=== PATIENT | male | born 1945 | race Caucasian/White ===

== ENCOUNTER 2021-03-14 15:01 | Inpatient (IN) | payer OTHER ==
[~2021-03-14] VITALS: Ht 167.6 cm; Wt 69.9 kg
[2021-03-14] MEDS ORDERED: MECLIZINE HCL 25 MG TAB PO ONE (15:45)
[2021-03-14] MEDS ORDERED: SODIUM CHLORIDE 0.9% 1,000 ML IV ONE (15:45)
[2021-03-14 16:08] LABS: Basophils # (auto) 0 10 ^3/uL (0-0.2); Basophils % (auto) 0.2 % (0.0-2.0); Eosinophils # (auto) 0.1 10 ^3/uL (0-0.8); Eosinophils % (auto) 1.5 % (0.0-7.0); Hematocrit 40.7 % (41.0-53.0); Lymphocytes # (auto) 0.9 10 ^3/uL (0.4-5.4); Lymphocytes % (auto) 10.5 % (10.0-50.0); Mean Corpuscular Hemoglobin 31.5 pg (28.0-32.0); Mean Corpuscular Hgb Conc. 34.4 g/dL (32.0-36.0); Mean Corpuscular Volume 91.6 fL (80.0-100.0); Monocytes # (auto) 0.4 10 ^3/uL (0-1.3); Monocytes % (auto) 4.4 % (0.0-12.0); Neutrophils # (auto) 7.3 10 ^3/uL (1.6-8.6); Neutrophils % (auto) 83.4 % (37.0-80.0); Nucleated Red Blood Cells % 0.1 %; Red Blood Cells 4.45 10^6/uL (4.5-5.90); White Blood Cell 8.8 10^3/uL (4.4-10.8)
[2021-03-14 16:31] LABS: Albumin 3.4 g/dL (3.4-5.0); Anion Gap 7 (5-15); Blood Urea Nitrogen 74 mg/dL (7-18); Calcium 8.5 mg/dL (8.5-10.1); Carbon Dioxide 18 mmol/L (21-32); Chloride 115 mmol/L (98-107); Glucose 106 mg/dL (74-106); Sodium 140 mmol/L (136-145)
[2021-03-14 16:37] LABS: Alanine Aminotransferase 17 U/L (16-61); Alkaline Phosphatase 90 U/L (45-117); Aspartate Aminotransferase 10 U/L (15-37); BUN/Creatinine Ratio 22.6; Bilirubin, Total 0.4 mg/dL (0.2-1.0); GFR African American 24 mL/min; GFR Non-African American 20 mL/min; Total Protein 7.8 g/dL (6.4-8.2)
[2021-03-14 16:46] LABS: Potassium 6.6 mmol/L (3.5-5.1)
[2021-03-14] MEDS ORDERED: InsuLIN REG 1unit/0.01ml Soln (100units/ml) IV ONE ×2 (17:15→18:30)
[2021-03-14] MEDS ORDERED: SODIUM ZIRCONIUM CYCL 10 GM PAK PO ONE (17:15)
[2021-03-14] MEDS ORDERED: DEXTROSE (50%) 50ML SYRG IV ONE ×2 (17:15→18:30)
[2021-03-14] MEDS ORDERED: FUROSEMIDE 20 MG/2 ML VIAL IV ONE (17:15)
[2021-03-14] MEDS ORDERED: CALCIUM GLUC 1,000mg/50ml-NS 50 ML IV ONE (17:15)
[2021-03-14] MEDS ORDERED: ALBUTEROL SULF 2.5 MG/0.5ML(0.5%) NEB SOLN NEB ONE ×2 (17:15→18:30)
[2021-03-14] MEDS ORDERED: SODIUM BICARBONATE 8.4% INJ 50ML SYRINGE IV ONE ×2 (17:15→18:30)
[2021-03-14] MEDS ORDERED: FUROSEMIDE 40 MG/4 ML VIAL IV ONE (18:30)
[2021-03-14] MEDS ORDERED: CALCIUM CHL 100MG/ML 1,000 MG in D5W 5% 100 ML IV ONE (18:30)
[2021-03-14] MEDS ORDERED: NITROGLYCERIN 0.4 MG SL TAB SL PRN (18:30)
[2021-03-14] MEDS ORDERED: MORPHINE SULFATE INJECTION 2 MG/ML SYRG IV PRN ×2 (18:30→19:00)
[2021-03-14] MEDS ORDERED: LORazepam 0.5 MG TAB PO PRN (19:00)
[2021-03-14] MEDS ORDERED: ACETAMINOPHEN 500 MG TAB PO PRN (19:00)
[2021-03-14] MEDS ORDERED: hydrALAZINE HCL 20 MG/ML VL IV PRN (19:00)
[2021-03-14] MEDS ORDERED: ONDANSETRON HCL 4 MG/2 ML VIAL IV PRN (19:00)
[2021-03-14] MEDS ORDERED: DOCUSATE CALCIUM 240 MG CAP PO PRN (19:00)
[2021-03-14] MEDS: SODIUM ZIRCONIUM CYCL 10 GM PAK PO SCH (22:44)
[2021-03-14 23:43] LABS: Potassium 4.4 mmol/L (3.5-5.1)
[2021-03-15 05:00] VITALS: BP 103/53
[2021-03-15] MEDS ORDERED: PANT40TA2 PO (05:00)
[2021-03-15] MEDS ORDERED: AMLO-489 PO (05:00)
[2021-03-15] MEDS ORDERED: LISI20TA28 PO (05:00)
[2021-03-15 05:01] VITALS: BP 103/53
[2021-03-15] MEDS: SODIUM ZIRCONIUM CYCL 10 GM PAK PO SCH ×3 (05:32→20:05)
[2021-03-15 06:28] LABS: Basophils # (auto) 0 10 ^3/uL (0-0.2); Basophils % (auto) 0.2 % (0.0-2.0); Eosinophils # (auto) 0.2 10 ^3/uL (0-0.8); Eosinophils % (auto) 1.7 % (0.0-7.0); Hematocrit 37.3 % (41.0-53.0); Hemoglobin 13.2 g/dL (13.5-17.5); Lymphocytes % (auto) 9.7 % (10.0-50.0); Mean Corpuscular Hemoglobin 31.8 pg (28.0-32.0); Mean Corpuscular Hgb Conc. 35.3 g/dL (32.0-36.0); Mean Corpuscular Volume 90.1 fL (80.0-100.0); Monocytes # (auto) 0.5 10 ^3/uL (0-1.3); Monocytes % (auto) 5.4 % (0.0-12.0); Neutrophils # (auto) 8.4 10 ^3/uL (1.6-8.6); Nucleated Red Blood Cells % 0.1 %; Red Blood Cells 4.14 10^6/uL (4.5-5.90); Red Cell Distribution Width 14.1 % (11.8-14.3); White Blood Cell 10.1 10^3/uL (4.4-10.8)
[2021-03-15 06:44] LABS: Albumin 3.1 g/dL (3.4-5.0); Calcium 8.8 mg/dL (8.5-10.1); Potassium 5.3 mmol/L (3.5-5.1)
[2021-03-15 06:45] LABS: INR 0.98 (0.9-1.15)
[2021-03-15 06:50] LABS: Bilirubin, Total 0.4 mg/dL (0.2-1.0); Total Protein 7.3 g/dL (6.4-8.2)
[2021-03-15 08:31] VITALS: BP 85/51
[2021-03-15] MEDS: ENOXAPARIN SOD 30 MG/0.3 ML SYRINGE SC SCH (09:09)
[2021-03-15] MEDS: PANTOPRAZOLE 40 MG TAB PO SCH (09:09)
[2021-03-15 09:38] LABS: Urine Bacteria NONE SEEN /hpf (None Seen); Urine Blood 1+ /uL (Negative); Urine Hyaline Cast FEW /lpf (0 - 2); Urine Specific Gravity 1.013 (1.001-1.035); Urine WBC 5 /hpf (0 - 3)
[2021-03-15] MEDS ORDERED: FOLIC ACID 1 MG, MULTIPLE VITAMIN 10 ML, MAGNESIUM SULF SDV 50% 8 MEQ, THIAMINE INJ 100... INJ ONE ×5 (12:00)
[2021-03-15] MEDS ORDERED: SODIUM CHLORIDE 0.9% 500 ML IV ONE (12:00)
[2021-03-15 12:45] VITALS: BP 81/52
[2021-03-15] MEDS ORDERED: SODIUM CHLORIDE 0.9% 2,000 ML IV ONE (14:30)
[2021-03-15 16:55] VITALS: BP 94/48
[2021-03-15] MEDS: MECLIZINE HCL 25 MG TAB PO SCH ×2 (18:06→22:06)
[2021-03-15] MEDS ORDERED: LORazepam 2MG/ML-1ML VIAL IV PRN (19:45)
[2021-03-15 20:21] LABS: % Iron Saturation 27.4 % (20-55)
[2021-03-15 22:00] VITALS: BP 107/64
[2021-03-16] MEDS: SODIUM ZIRCONIUM CYCL 10 GM PAK PO SCH ×2 (04:10→14:26)
[2021-03-16 05:00] VITALS: BP 102/56
[2021-03-16] MEDS: MECLIZINE HCL 25 MG TAB PO SCH (06:15)
[2021-03-16 09:00] VITALS: BP 87/43
[2021-03-16] MEDS: PANTOPRAZOLE 40 MG TAB PO SCH (09:40)
[2021-03-16] MEDS: ENOXAPARIN SOD 30 MG/0.3 ML SYRINGE SC SCH (09:41)
[2021-03-16 13:03] VITALS: BP 92/50
[2021-03-16] MEDS: FOLIC ACID 1 MG, MULTIPLE VITAMIN 10 ML, MAGNESIUM SULF SDV 50% 8 MEQ, THIAMINE INJ 100... INJ SCH ×5 (14:13)
[2021-03-16 17:00] VITALS: BP 108/59
[2021-03-16 22:00] VITALS: BP 107/60
[2021-03-17] VITALS (7 sets, daily range): BP systolic 99–129; BP diastolic 57–64
[2021-03-17 06:04] LABS: Calcium 7.6 mg/dL (8.5-10.1); Potassium 4.1 mmol/L (3.5-5.1)
[2021-03-17 06:06] LABS: BUN/Creatinine Ratio 16.3
[2021-03-17] MEDS: PANTOPRAZOLE 40 MG TAB PO SCH (10:04)
[2021-03-17] MEDS: ENOXAPARIN SOD 30 MG/0.3 ML SYRINGE SC SCH (10:05)
[2021-03-17 10:49] LABS: Folate (Folic Acid) > 24.00 ng/mL (5.38-24)
[2021-03-17] MEDS: FOLIC ACID 1 MG, MULTIPLE VITAMIN 10 ML, MAGNESIUM SULF SDV 50% 8 MEQ, THIAMINE INJ 100... INJ SCH ×5 (12:59)
[2021-03-18 05:00] VITALS: BP_SYST 107; BP_SYST 108; BP_SYST 92; BP_DIAS 53; BP_DIAS 63; BP_DIAS 66
[2021-03-18 06:47] LABS: Basophils # (auto) 0 10 ^3/uL (0-0.2); Basophils % (auto) 0.3 % (0.0-2.0); Eosinophils # (auto) 0.2 10 ^3/uL (0-0.8); Eosinophils % (auto) 3.6 % (0.0-7.0); Hematocrit 32.7 % (41.0-53.0); Hemoglobin 11.6 g/dL (13.5-17.5); Lymphocytes # (auto) 1.1 10 ^3/uL (0.4-5.4); Lymphocytes % (auto) 18.1 % (10.0-50.0); Mean Corpuscular Hemoglobin 31.6 pg (28.0-32.0); Mean Corpuscular Hgb Conc. 35.3 g/dL (32.0-36.0); Mean Corpuscular Volume 89.4 fL (80.0-100.0); Monocytes # (auto) 0.5 10 ^3/uL (0-1.3); Monocytes % (auto) 9.3 % (0.0-12.0); Neutrophils % (auto) 68.7 % (37.0-80.0); Nucleated Red Blood Cells % 0.1 %; Red Blood Cells 3.66 10^6/uL (4.5-5.90); Red Cell Distribution Width 13.6 % (11.8-14.3); White Blood Cell 5.8 10^3/uL (4.4-10.8)
[2021-03-18 07:03] LABS: Calcium 7.9 mg/dL (8.5-10.1); Potassium 4.3 mmol/L (3.5-5.1)
[2021-03-18 08:06] LABS: Immunoglobulin G, Serum 1003 mg/dL (603-1613)
[2021-03-18 09:00] VITALS: BP 115/67
[2021-03-18] MEDS ORDERED: CYANOCOBALAMIN (B-12) 1000 MCG/1 ML VIAL IM ONE ×2 (09:00→09:45)
[2021-03-18] MEDS: PANTOPRAZOLE 40 MG TAB PO SCH (09:52)
[2021-03-18] MEDS: ENOXAPARIN SOD 30 MG/0.3 ML SYRINGE SC SCH (09:53)
[2021-03-18] MEDS: FOLIC ACID 1 MG, MULTIPLE VITAMIN 10 ML, MAGNESIUM SULF SDV 50% 8 MEQ, THIAMINE INJ 100... INJ SCH ×5 (11:30)
[2021-03-18 13:00] VITALS: BP 109/60
[2021-03-18] MEDS ORDERED: CYA100I IM (15:58)
[2021-03-18] MEDS ORDERED: CYANOCOBALAMIN (B-12) 1000 MCG/1 ML VIAL IM SCH (16:00)
[2021-03-18 17:19] VITALS: BP 129/73
[2021-03-18 17:50] VITALS: BP 108/48
[2021-03-19] MEDS ORDERED: THIAMINE HCL 100 MG TAB PO SCH (10:00)
[2021-03-19] MEDS ORDERED: FOLIC ACID 1 MG TAB PO SCH (10:00)
[2021-03-19] MEDS ORDERED: CYANOCOBALAMIN (B-12) 1000 MCG/1 ML VIAL IM SCH (10:00)
[2021-03-19] MEDS ORDERED: CYANOCOBALAMIN 500 MCG TAB PO SCH (10:00)
[2021-03-19] MEDS ORDERED: CYA100I IM (10:54)
== END 2021-03-18 19:00 | disposition home health service (06) | DRG 640 ==
LOC: EDBD 15:01 → ER 15:01 → TELE 18:20 → TELE-EAST 03-15 04:01
PROVIDERS: ADMIT Family Medicine; ATTEND Internal Medicine
DX: E87.5 Hyperkalemia (principal); N17.0 Acute kidney failure with tubular necrosis; I13.0 Hypertensive heart and chronic kidney disease with heart failure and stage 1 through stage 4 chronic kidney disease, or unspecified chronic kidney disease; I42.6 Alcoholic cardiomyopathy; I50.20 Unspecified systolic (congestive) heart failure; R55 Syncope and collapse; E53.8 Deficiency of other specified B group vitamins; E61.1 Iron deficiency; E86.9 Volume depletion, unspecified; F10.10 Alcohol abuse, uncomplicated; Z20.822 Contact with and (suspected) exposure to COVID-19; G25.81 Restless legs syndrome; G62.9 Polyneuropathy, unspecified; N18.30 Chronic kidney disease, stage 3 unspecified; H57.02 Anisocoria; J44.9 Chronic obstructive pulmonary disease, unspecified; Z80.9 Family history of malignant neoplasm, unspecified; Z82.49 Family history of ischemic heart disease and other diseases of the circulatory system; Z85.118 Personal history of other malignant neoplasm of bronchus and lung; Z85.819 Personal history of malignant neoplasm of unspecified site of lip, oral cavity, and pharynx; Z87.891 Personal history of nicotine dependence; Z85.21 Personal history of malignant neoplasm of larynx; D63.8 Anemia in other chronic diseases classified elsewhere
CPT/HCPCS: 36415; 70450; 70545; 70547; 70551; 71250; 80048; 80051; 80053; 80320; 81001; 82607; 82728; 82746; 82784; 82962; 83036; 83540; 83550; 83880; 84443; 84484; 85025; 85610; 86334; 87426; 93005; 93306; 93886; 94640; 95819; 96365; 96366; 96375; 97110; 97116; 97530; G0378; J1815; J7060

== ENCOUNTER 2023-07-13 21:58 | Emergency (ER) | payer OTHER ==
[~2023-07-13] VITALS: Ht 182.9 cm; Wt 72.7 kg
[~2023-07-13 21:58] MED LIST: CYA100I IM; PANT40TA2 PO
[2023-07-13] MEDS: DexAMETHasone SOD PHOS 10MG/1ML VIAL INJ IV ONE (22:32)
[2023-07-13] MEDS: FAMOTIDINE INJECTION 40 MG in SODIUM CHL 0.9% 100 ML IV ONE (22:41)
[2023-07-13] MEDS: FAMOTIDINE (10MG/ML) 2ML VL IV ONE (22:41)
[2023-07-14 00:05] VITALS: BP 118/83; PULSE 100; RESP 20; TEMP 98.3; O2SAT 95
== END 2023-07-14 00:12 | disposition home or self-care (01) ==
LOC: ER 21:58 → EDBD 21:58 → ER 07-14 00:12
DX: R06.02 Shortness of breath (principal); T36.7X5A Adverse effect of antifungal antibiotics, systemically used, initial encounter; I10 Essential (primary) hypertension; Z88.8 Allergy status to other drugs, medicaments and biological substances; Z79.899 Other long term (current) drug therapy; Y92.89 Other specified places as the place of occurrence of the external cause
CPT/HCPCS: 96374; 96375; 99284; J1100; J3490